=== PATIENT | female | born 1980 | race Caucasian/White ===

== ENCOUNTER → 2024-04-23 | Outpatient (REF) | payer OTHER, SELFPAY | LOC: DHSLP | PROVIDERS: ATTENDING PHYSICIAN Internal Medicine Cardiovascular Disease; FAMILY PHYSICIAN Family Medicine | DX: G47.19 Other hypersomnia (principal); R06.83 Snoring | CPT/HCPCS: 95800 ==

== ENCOUNTER → 2025-01-13 07:30 | Outpatient (REF) | payer OTHER, SELFPAY | LOC: HWWDC 07:30 | PROVIDERS: ATTENDING PHYSICIAN Obstetrics & Gynecology; FAMILY PHYSICIAN Family Medicine | DX: Z12.31 Encounter for screening mammogram for malignant neoplasm of breast (principal) | CPT/HCPCS: 77063; 77067 ==

== ENCOUNTER 2025-03-10 06:20 | Day surgery (SDC) | payer OTHER, SELFPAY | END 2025-03-10 15:57 | disposition home or self-care (01) | LOC: GI 06:20 | PROVIDERS: ATTENDING PHYSICIAN Internal Medicine Gastroenterology | DX: Z12.11 Encounter for screening for malignant neoplasm of colon (principal); K64.8 Other hemorrhoids; K57.30 Diverticulosis of large intestine without perforation or abscess without bleeding; D12.4 Benign neoplasm of descending colon; D12.8 Benign neoplasm of rectum; K63.89 Other specified diseases of intestine; Z83.719 Family history of colon polyps, unspecified | CPT/HCPCS: 45380; 88305 ==